=== PATIENT | female | born 1995 | race Caucasian/White ===

== ENCOUNTER 2017-02-12 20:42 | Emergency (ER) | payer OTHER ==
[2017-02-12 21:32] LABS: #Basophils 0.1 thou/uL (0.0-0.2); #Lymphocytes 3.6 thou/uL (1.20-3.40); #Monocytes 0.7 thou/uL (0.11-0.59); #Neutrophils 4.8 thou/uL (1.40-6.50); %Basophils 0.6 % (0.0-1.0); %Eosinophils 0.5 % (0.0-10.0); %Lymphocytes 38.8 % (21.0-51.0); %Monocytes 7.7 % (0.0-10.0); %Neutrophils 52.5 % (42.0-75.0); Mean Corpuscular HGB CONC 33.5 g/dL (32.0-36.0); Mean Corpuscular Hemoglobin 30.9 pg (27.0-31.0); Mean Corpuscular Volume 92.4 fl (81.0-99.0); Mean Platelet Volume 8.7 fL (7.4-10.4); Platelet Count 224 thou/uL (130-400); RBC Distribution Width 11.4 % (11.5-14.5); Red Blood Cell (RBC) Count 4.52 mill/uL (4.20-5.40); White Blood Cell (WBC) Count 9.2 thou/uL (4.8-10.8)
--- NOTE | 2017-02-12 21:34 | RAD ---
PORTABLE CHEST: 02/12/17 HISTORY: Chest pain. Heart size and mediastinum are within normal limits. The lungs are clear of infiltrates. No significa nt bony findings. IMPRESSION: No active intrathoracic disease. POS: [facility]
[2017-02-12 21:54] LABS: ALT (SGPT) 23 U/L (8-55); AST (SGOT) 23 U/L (5-34); Alkaline Phosphatase 96 U/L (40-150); Anion Gap 13 mmol/L (10-20); BUN (Urea Nitrogen) 7 mg/dL (7.0-18.7); Bilirubin, Total 0.2 mg/dL (0.2-1.2); Calc. Creatinine Clearance 0 mL/min (70-130); Calcium 9.8 mg/dL (7.8-10.44); Carbon Dioxide 27 mmol/L (22-29); Chloride 105 mmol/L (98-107); Estimated GFR-MDRD Greater than 90; Globulin 3.2 g/dL (2.4-3.5); Glucose 98 mg/dL (70-105); Potassium 3.7 mmol/L (3.5-5.1); Protein, Total 7.2 g/dL (6.0-8.3); Sodium 141 mmol/L (136-145)
[2017-02-12 21:59] LABS: CKMB 0.9 ng/mL (0-6.6); Troponin I 0.017 ng/mL (< 0.028)
[2017-02-12] MEDS ORDERED: Mag-Al 1200 mg/1200 mg/30 ML UDCUP ONE (22:12)
[2017-02-12] MEDS ORDERED: Lidocaine Viscous Sol 2% 15 ml UD Cup ONE (22:12)
[2017-02-13] MEDS ORDERED: traMADol HCl 50 MG TAB ONE (00:24)
--- NOTE | 2017-03-05 15:25 | EKG ---
Test Reason : CHEST PAIN Blood Pressure : / mmHG Vent. Rate : 111 BPM Atrial Rate : 111 BPM P-R Int : 146 ms QRS Dur : 076 ms QT Int : 332 ms P-R-T Axes : 032 019 002 degrees QTc Int : 451 ms Sinus tachycardia Otherwise normal ECG Confirmed by MISTY LOWE ([id number]), fan mail editor MAYELIN GARNER ([id number] on 03/05/2017 3:24:43 PM Referred By: Confirmed By:MISTY LOWE
== END 2017-02-12 23:36 | disposition home or self-care (01) ==
LOC: ERS 20:42
DX: R07.89 Other chest pain (principal); I10 Essential (primary) hypertension; M06.9 Rheumatoid arthritis, unspecified; F90.9 Attention-deficit hyperactivity disorder, unspecified type; Z79.899 Other long term (current) drug therapy
CPT/HCPCS: 36415; 71010; 80053; 82553; 84484; 85025; 93005

== ENCOUNTER 2017-09-07 14:38 | Outpatient (CLI) | payer OTHER ==
--- NOTE | 2017-09-07 15:14 | RAD ---
ABDOMEN TWO VIEWS CHEST ONE VIEW: History: 22-year-old female with history of abdominal pain. Comparison: 02-12-17 chest FINDINGS: No acute intrathoracic disease. Scattered gas and fecal material in the colon. No evidence for large or small bowel obstruction. No overt calculus. No free intraperitoneal air. IMPRESSION: Unremarkable chest one view, abdomen two views. POS: OFF
== END 2017-09-07 14:39 | disposition home or self-care (01) ==
LOC: RAD-FRANK 14:38
PROVIDERS: ATTEND Nurse Practitioner Family
DX: R10.9 Unspecified abdominal pain (principal); N92.6 Irregular menstruation, unspecified; R11.0 Nausea; M79.1 Myalgia
CPT/HCPCS: 36415; 74022; 80053; 84443; 84702; 85025